=== PATIENT | female | born 1960 | race Caucasian/White ===

== ENCOUNTER → 2016-10-28 | Outpatient (CLI) | payer OTHER | END | disposition home or self-care (01) | LOC: CFH 10:07 | PROVIDERS: ATTEND Family Medicine | DX: Z12.31 Encounter for screening mammogram for malignant neoplasm of breast (principal) | CPT/HCPCS: G0202 ==

== ENCOUNTER → 2017-07-20 | Outpatient (CLI) | payer OTHER | END | disposition home or self-care (01) | LOC: RAD 16:05 | PROVIDERS: ATTEND Family Medicine | DX: N20.0 Calculus of kidney (principal); N32.89 Other specified disorders of bladder | CPT/HCPCS: 76770 ==

== ENCOUNTER 2020-10-22 19:12 | Inpatient (IN) | payer OTHER ==
[~2020-10-22] VITALS: Ht 152.4 cm; Wt 87.9 kg
--- NOTE | 2020-10-22 19:43 | NUR ---
Pt tested COVID positive yesterday. Feeling more SOB today. Pt satting 88-90% on RA, put on 2L nasal cannula satting 94%. Pt reports she has thrown up about 1x/day over the last few days. Reports she just feels weak, lethargic, short of breath. Only reported medical hx is HTN. Does not smoke.
[2020-10-22] MEDS ORDERED: DEXAMETHASONE 4 MG TABLET ONE (19:46)
--- NOTE | 2020-10-22 19:50 | NUR ---
XR at bedside
--- NOTE | 2020-10-22 19:58 | NUR ---
IV inserted, labs drawn, lab at bedside. Provided pt warm blanket.
[2020-10-22] MEDS ORDERED: SODIUM CHLORIDE FLUSH 10ML SYR IVF ONE (20:00)
[2020-10-22] MEDS ORDERED: DEXAMETHASONE 4 MG TABLET PO ONE (20:00)
[2020-10-22 20:17] LABS: BASOPHILS % (AUTO) 0 % (0-1); EOSINOPHILS % (AUTO) 0 % (1-7); LYMPHOCYTES % (AUTO) 16 % (22-44); MD NO; MEAN CORPUSCULAR HEMOGLOBIN 32.7 pg (27.0-34.8); MEAN CORPUSCULAR HGB CONC 34.2 g/dL (32.4-35.8); MEAN PLATELET VOLUME 8.8 fL (7.4-10.4); MONOCYTES % (AUTO) 9 % (2-9); NEUTROPHILS % (AUTO) 75 % (42-75); PLATELET COUNT 190 x10^3/uL (130-400); RED BLOOD COUNT 4.69 x10^6/uL (3.82-5.3); RED CELL DISTRIBUTION WIDTH 12.6 % (9.6-15.2)
[2020-10-22 20:24] LABS: ALANINE AMINOTRANSFERASE 39 U/L (12-78); ALBUMIN 3.5 g/dL (3.4-5.0); ANION GAP 6 mmol/L (5-15); CALCIUM 8.3 mg/dL (8.5-10.1); CHLORIDE 104 mmol/L (98-107)
[2020-10-22 20:26] LABS: ALKALINE PHOSPHATASE 42 U/L (45-117); BILIRUBIN,TOTAL 0.5 mg/dL (0.2-1.0); TOTAL PROTEIN 7.4 g/dL (6.4-8.2)
[2020-10-22] MEDS ORDERED: CEFTRIAXONE PMX 1GM/50ML 50 ML IV ONE (20:30)
--- NOTE | 2020-10-22 20:32 | NUR ---
Provider at bedside.
--- NOTE | 2020-10-22 21:03 | NUR ---
Updated pt's son Sharath on the phone per pt permission.
[2020-10-22] MEDS ORDERED: CEFTRIAXONE PMX 1GM/50ML 50 ML ONE (21:05)
--- NOTE | 2020-10-22 21:10 | NUR ---
Blood cultures have been drawn. Rocephin now infusing per eMAR.
--- NOTE | 2020-10-22 21:13 | NUR ---
Report called to GABRIEL Salomon.
--- NOTE | 2020-10-22 21:25 | NUR ---
Pt being transported to room 372.
[2020-10-22 21:39] VITALS: BP 105/71
[2020-10-22 21:50] VITALS: BP 150/71
[2020-10-22] MEDS ORDERED: AMLO-150 PO (22:29)
[2020-10-22] MEDS ORDERED: ALBU18HF INH (22:29)
[2020-10-22] MEDS ORDERED: PROMETHAZINE 25 MG/ML, 1ML IM PRN (22:30)
[2020-10-22] MEDS ORDERED: ONDANSETRON 2MG/ML, 2ML IVPush PRN (22:30)
[2020-10-22] MEDS ORDERED: hydrALAzine 20 MG/ML, 1ML IVPush PRN (22:30)
[2020-10-22] MEDS: MELATONIN 5 MG TABLET PO SCH (22:30)
[2020-10-22] MEDS ORDERED: ONDANSETRON ODT 4 MG PO PRN (22:30)
[2020-10-22] MEDS ORDERED: DOCUSATE 100 MG CAPSULE PO PRN (22:30)
[2020-10-22] MEDS ORDERED: BISACODYL 10 MG SUPP PR PRN (22:30)
[2020-10-22] MEDS ORDERED: POLYETHYLENE GLYCOL 17 GM PACKET PO PRN (22:30)
[2020-10-22 22:50] LABS: MICROSCOPIC INDICATED
[2020-10-22] MEDS ORDERED: ALBUTEROL HFA 90 MCG/SPRAY INH PRN (23:00)
[2020-10-22] MEDS: ENOXAPARIN 40 MG/0.4 ML SQ SCH (23:03)
[2020-10-22] MEDS: AZITHROMYCIN 500 MG in SODIUM CHLORIDE 0.9% 250 ML IV SCH (23:03)
[2020-10-22] MEDS: ACETAMINOPHEN 325 MG TABLET PO PRN (23:04)
[2020-10-22] MEDS: ASCORBIC ACID 500 MG TABLET PO SCH (23:08)
[2020-10-23 01:21] VITALS: BP 102/61
[2020-10-23 05:55] LABS: BASOPHILS % (AUTO) 0 % (0-1); EOSINOPHILS % (AUTO) 0 % (1-7); LYMPHOCYTES % (AUTO) 21 % (22-44); MEAN CORPUSCULAR HEMOGLOBIN 32.9 pg (27.0-34.8); MEAN CORPUSCULAR HGB CONC 34.2 g/dL (32.4-35.8); MEAN PLATELET VOLUME 8.6 fL (7.4-10.4); MONOCYTES % (AUTO) 7 % (2-9); NEUTROPHILS % (AUTO) 73 % (42-75); PLATELET COUNT 198 x10^3/uL (130-400); RED BLOOD COUNT 4.59 x10^6/uL (3.82-5.3)
[2020-10-23 05:56] LABS: MD NO
[2020-10-23 06:02] LABS: ALBUMIN 3.2 g/dL (3.4-5.0); ANION GAP 8 mmol/L (5-15); CHLORIDE 105 mmol/L (98-107)
[2020-10-23 06:11] LABS: ALANINE AMINOTRANSFERASE 42 U/L (12-78); ALKALINE PHOSPHATASE 41 U/L (45-117); BILIRUBIN,TOTAL 0.6 mg/dL (0.2-1.0); CHOL/HDL RATIO 2.3; CHOLESTEROL, TOTAL 130 mg/dL (140-239); CREATININE 1.05 mg/dL (0.55-1.02); HDL CHOL % 43 % (28-40); HDL CHOLESTEROL (DIRECT) 56 mg/dL (40-60); LDL CHOLESTEROL,CALCULATED 59 mg/dL (54-169); LDL/HDL RATIO 1.1 (0.5-3.0); TOTAL PROTEIN 7.1 g/dL (6.4-8.2); TRIGLYCERIDES 77 mg/dL (50-200); VLDL CHOLESTEROL 15 mg/dL (0-25)
[2020-10-23 08:01] VITALS: BP 103/64
[2020-10-23] MEDS ORDERED: AMLODIPINE 5 MG TABLET PO SCH (09:00)
[2020-10-23 09:08] LABS: D-DIMER 0.65 ug/mlFEU (0.00-0.52)
[2020-10-23] MEDS: DEXAMETHASONE 4 MG/ML, 1ML IVPush SCH (09:31)
[2020-10-23] MEDS: ASCORBIC ACID 500 MG TABLET PO SCH ×2 (09:32→17:03)
[2020-10-23] MEDS: ZINC SULFATE 220 MG CAPSULE PO SCH (09:32)
[2020-10-23] MEDS: CHOLECALCIFEROL 5,000u TAB PO SCH (09:32)
[2020-10-23] MEDS ORDERED: REMDESIVIR 200 MG in SODIUM CHLORIDE 0.9% 250 ML IVPB ONE (10:30)
[2020-10-23] MEDS: ENOXAPARIN 40 MG/0.4 ML SQ SCH ×2 (12:01→22:44)
[2020-10-23] MEDS: OXYcodone IR 5MG TABLET PO PRN ×3 (12:12→21:22)
[2020-10-23 16:39] VITALS: BP 110/75
[2020-10-23 19:17] VITALS: BP 101/66
[2020-10-23] MEDS: CEFTRIAXONE PMX 2GM/50ML 50 ML IVPB SCH (20:10)
[2020-10-23] MEDS: MELATONIN 5 MG TABLET PO SCH (21:22)
[2020-10-23] MEDS: AZITHROMYCIN 500 MG in SODIUM CHLORIDE 0.9% 250 ML IV SCH (22:44)
[2020-10-24] MEDS: OXYcodone IR 5MG TABLET PO PRN ×5 (00:59→21:02)
[2020-10-24 01:04] VITALS: BP 113/64
[2020-10-24 05:41] LABS: CHLORIDE 107 mmol/L (98-107)
[2020-10-24 05:59] LABS: ALANINE AMINOTRANSFERASE 43 U/L (12-78); ALBUMIN 2.9 g/dL (3.4-5.0); ALKALINE PHOSPHATASE 34 U/L (45-117); ANION GAP 4 mmol/L (5-15); BILIRUBIN,TOTAL 0.2 mg/dL (0.2-1.0); CALCIUM 8.3 mg/dL (8.5-10.1); CREATININE 0.86 mg/dL (0.55-1.02); TOTAL PROTEIN 6.2 g/dL (6.4-8.2)
[2020-10-24 06:39] VITALS: BP 101/68
[2020-10-24] MEDS: AMLODIPINE 5 MG TABLET PO SCH (07:36)
[2020-10-24] MEDS: DEXAMETHASONE 4 MG/ML, 1ML IVPush SCH (07:36)
[2020-10-24] MEDS: ZINC SULFATE 220 MG CAPSULE PO SCH (07:36)
[2020-10-24] MEDS: ASCORBIC ACID 500 MG TABLET PO SCH ×2 (07:36→15:41)
[2020-10-24] MEDS: CHOLECALCIFEROL 5,000u TAB PO SCH (07:36)
[2020-10-24] MEDS: REMDESIVIR 100 MG in SODIUM CHLORIDE 0.9% 250 ML IVPB SCH (11:07)
[2020-10-24] MEDS: ENOXAPARIN 40 MG/0.4 ML SQ SCH ×2 (11:07→22:44)
[2020-10-24 12:11] VITALS: BP 97/62
[2020-10-24] MEDS: CEFTRIAXONE PMX 2GM/50ML 50 ML IVPB SCH (18:40)
[2020-10-24 21:02] VITALS: BP 97/63
[2020-10-24] MEDS: AZITHROMYCIN 500 MG in SODIUM CHLORIDE 0.9% 250 ML IV SCH (22:44)
[2020-10-24] MEDS: MELATONIN 5 MG TABLET PO SCH (22:44)
[2020-10-25] MEDS: OXYcodone IR 5MG TABLET PO PRN ×2 (01:17→19:16)
[2020-10-25 01:18] VITALS: BP 101/63
[2020-10-25] MEDS: OMEPRAZOLE 20 MG CAPSULE.DR PO SCH (06:33)
[2020-10-25 06:48] VITALS: BP 106/67
[2020-10-25 06:48] LABS: BASOPHILS % (AUTO) 0 % (0-1); EOSINOPHILS % (AUTO) 0 % (1-7); LYMPHOCYTES % (AUTO) 17 % (22-44); MEAN CORPUSCULAR HEMOGLOBIN 32.5 pg (27.0-34.8); MEAN PLATELET VOLUME 8.6 fL (7.4-10.4); MONOCYTES % (AUTO) 13 % (2-9); NEUTROPHILS % (AUTO) 70 % (42-75); PLATELET COUNT 223 x10^3/uL (130-400); RED BLOOD COUNT 4.08 x10^6/uL (3.82-5.3); RED CELL DISTRIBUTION WIDTH 12.6 % (9.6-15.2)
[2020-10-25 06:50] LABS: MD NO
[2020-10-25 06:59] LABS: ALANINE AMINOTRANSFERASE 43 U/L (12-78); ALBUMIN 2.7 g/dL (3.4-5.0); ANION GAP 4 mmol/L (5-15); CHLORIDE 106 mmol/L (98-107); CREATININE 0.65 mg/dL (0.55-1.02)
[2020-10-25 07:03] LABS: ALKALINE PHOSPHATASE 34 U/L (45-117); BILIRUBIN,TOTAL 0.2 mg/dL (0.2-1.0); TOTAL PROTEIN 5.8 g/dL (6.4-8.2)
[2020-10-25] MEDS: ZINC SULFATE 220 MG CAPSULE PO SCH (08:11)
[2020-10-25] MEDS: ASCORBIC ACID 500 MG TABLET PO SCH ×2 (08:11→17:10)
[2020-10-25] MEDS: DEXAMETHASONE 4 MG/ML, 1ML IVPush SCH (08:11)
[2020-10-25] MEDS: THIAMINE 100MG TABLET PO SCH (08:11)
[2020-10-25] MEDS: AMLODIPINE 5 MG TABLET PO SCH (08:11)
[2020-10-25] MEDS: CHOLECALCIFEROL 5,000u TAB PO SCH (08:12)
[2020-10-25] MEDS ORDERED: FUROSEMIDE 20 MG/2 ML IV ONE (09:00)
[2020-10-25] MEDS: REMDESIVIR 100 MG in SODIUM CHLORIDE 0.9% 250 ML IVPB SCH (11:00)
[2020-10-25] MEDS: ENOXAPARIN 40 MG/0.4 ML SQ SCH ×2 (11:01→22:30)
[2020-10-25 13:10] VITALS: BP 104/69
[2020-10-25] MEDS: ACETAMINOPHEN 325 MG TABLET PO PRN (17:09)
[2020-10-25] MEDS: CEFTRIAXONE PMX 2GM/50ML 50 ML IVPB SCH (18:43)
[2020-10-25 20:18] VITALS: BP 102/65
[2020-10-25] MEDS: MELATONIN 5 MG TABLET PO SCH (21:23)
[2020-10-25] MEDS: AZITHROMYCIN 500 MG in SODIUM CHLORIDE 0.9% 250 ML IV SCH (22:34)
[2020-10-26] MEDS: OXYcodone IR 5MG TABLET PO PRN (00:34)
[2020-10-26 00:46] VITALS: BP 106/70
[2020-10-26] MEDS: OMEPRAZOLE 20 MG CAPSULE.DR PO SCH (05:24)
[2020-10-26 05:39] LABS: HCT (SEDRATE) 39.2 % (34.6-47.8)
[2020-10-26 05:45] LABS: BASOPHILS % (AUTO) 0 % (0-1); EOSINOPHILS % (AUTO) 0 % (1-7); LYMPHOCYTES % (AUTO) 19 % (22-44); MEAN CORPUSCULAR HEMOGLOBIN 32.7 pg (27.0-34.8); MEAN CORPUSCULAR HGB CONC 34.6 g/dL (32.4-35.8); MEAN PLATELET VOLUME 9.2 fL (7.4-10.4); MONOCYTES % (AUTO) 13 % (2-9); NEUTROPHILS % (AUTO) 68 % (42-75); PLATELET COUNT 235 x10^3/uL (130-400); RED BLOOD COUNT 4.21 x10^6/uL (3.82-5.3); RED CELL DISTRIBUTION WIDTH 12.6 % (9.6-15.2)
[2020-10-26 05:47] LABS: MD NO
[2020-10-26 05:52] LABS: ALBUMIN 2.7 g/dL (3.4-5.0); ANION GAP 5 mmol/L (5-15); CALCIUM 8.2 mg/dL (8.5-10.1); CHLORIDE 107 mmol/L (98-107)
[2020-10-26 05:56] LABS: D-DIMER 0.95 ug/mlFEU (0.00-0.52)
[2020-10-26 06:02] LABS: ALANINE AMINOTRANSFERASE 37 U/L (12-78); ALKALINE PHOSPHATASE 34 U/L (45-117); BILIRUBIN,TOTAL 0.3 mg/dL (0.2-1.0); CREATININE 0.65 mg/dL (0.55-1.02); TOTAL PROTEIN 5.8 g/dL (6.4-8.2)
[2020-10-26 08:19] VITALS: BP 117/80
[2020-10-26] MEDS: ZINC SULFATE 220 MG CAPSULE PO SCH (09:18)
[2020-10-26] MEDS: ASCORBIC ACID 500 MG TABLET PO SCH ×2 (09:18→18:19)
[2020-10-26] MEDS: THIAMINE 100MG TABLET PO SCH (09:18)
[2020-10-26] MEDS: AMLODIPINE 5 MG TABLET PO SCH (09:18)
[2020-10-26] MEDS: CHOLECALCIFEROL 5,000u TAB PO SCH (09:18)
[2020-10-26] MEDS: DEXAMETHASONE 4 MG/ML, 1ML IVPush SCH (09:19)
[2020-10-26] MEDS ORDERED: OMNIPAQUE 350 MG/ML, 75ML BOTTLE ONE (11:11)
[2020-10-26 12:47] VITALS: BP 126/78
[2020-10-26] MEDS: ENOXAPARIN 40 MG/0.4 ML SQ SCH (13:06)
[2020-10-26] MEDS: REMDESIVIR 100 MG in SODIUM CHLORIDE 0.9% 250 ML IVPB SCH (13:06)
[2020-10-26] MEDS: CEFTRIAXONE PMX 2GM/50ML 50 ML IVPB SCH (18:19)
[2020-10-26 20:23] VITALS: BP 97/62
[2020-10-26] MEDS: MELATONIN 5 MG TABLET PO SCH (22:14)
[2020-10-26] MEDS: AZITHROMYCIN 500 MG in SODIUM CHLORIDE 0.9% 250 ML IV SCH (22:14)
[2020-10-27] MEDS: ENOXAPARIN 40 MG/0.4 ML SQ SCH ×2 (00:16→13:36)
[2020-10-27 02:22] VITALS: BP 90/52
[2020-10-27 05:54] LABS: ALANINE AMINOTRANSFERASE 32 U/L (12-78); ALBUMIN 2.6 g/dL (3.4-5.0); ANION GAP 4 mmol/L (5-15); CALCIUM 7.9 mg/dL (8.5-10.1); CHLORIDE 110 mmol/L (98-107); CREATININE 0.58 mg/dL (0.55-1.02)
[2020-10-27 05:56] LABS: ALKALINE PHOSPHATASE 36 U/L (45-117); BILIRUBIN,TOTAL 0.3 mg/dL (0.2-1.0); TOTAL PROTEIN 5.7 g/dL (6.4-8.2)
[2020-10-27] MEDS: OMEPRAZOLE 20 MG CAPSULE.DR PO SCH (06:00)
[2020-10-27 07:21] VITALS: BP 103/72
[2020-10-27] MEDS: ZINC SULFATE 220 MG CAPSULE PO SCH (08:58)
[2020-10-27] MEDS: ASCORBIC ACID 500 MG TABLET PO SCH ×2 (08:58→17:33)
[2020-10-27] MEDS: AMLODIPINE 5 MG TABLET PO SCH (08:58)
[2020-10-27] MEDS: CHOLECALCIFEROL 5,000u TAB PO SCH (08:58)
[2020-10-27] MEDS: THIAMINE 100MG TABLET PO SCH (08:58)
[2020-10-27] MEDS: DEXAMETHASONE 4 MG/ML, 1ML IVPush SCH (08:58)
[2020-10-27 12:31] VITALS: BP 104/67
[2020-10-27] MEDS: ACETAMINOPHEN 325 MG TABLET PO PRN (13:35)
[2020-10-27] MEDS: REMDESIVIR 100 MG in SODIUM CHLORIDE 0.9% 250 ML IVPB SCH (13:36)
[2020-10-27] MEDS: CEFTRIAXONE PMX 2GM/50ML 50 ML IVPB SCH (17:33)
[2020-10-27 19:26] VITALS: BP 101/64
[2020-10-27] MEDS: OXYcodone IR 5MG TABLET PO PRN ×2 (19:26→23:38)
[2020-10-27] MEDS: MELATONIN 5 MG TABLET PO SCH (20:52)
[2020-10-27] MEDS: AZITHROMYCIN 500 MG in SODIUM CHLORIDE 0.9% 250 ML IV SCH (22:32)
[2020-10-28] MEDS: ENOXAPARIN 40 MG/0.4 ML SQ SCH (01:00)
[2020-10-28 01:02] VITALS: BP 101/66
[2020-10-28 05:46] LABS: BASOPHILS % (AUTO) 0 % (0-1); EOSINOPHILS % (AUTO) 0 % (1-7); LYMPHOCYTES % (AUTO) 17 % (22-44); MEAN CORPUSCULAR HEMOGLOBIN 32.9 pg (27.0-34.8); MEAN CORPUSCULAR HGB CONC 34.9 g/dL (32.4-35.8); MEAN PLATELET VOLUME 9.2 fL (7.4-10.4); MONOCYTES % (AUTO) 9 % (2-9); NEUTROPHILS % (AUTO) 74 % (42-75); PLATELET COUNT 307 x10^3/uL (130-400); RED BLOOD COUNT 4.12 x10^6/uL (3.82-5.3); RED CELL DISTRIBUTION WIDTH 12.8 % (9.6-15.2)
[2020-10-28 05:48] LABS: D-DIMER 0.81 ug/mlFEU (0.00-0.52)
[2020-10-28 05:54] LABS: CHLORIDE 109 mmol/L (98-107)
[2020-10-28 05:56] LABS: MD NO
[2020-10-28 06:00] LABS: ALANINE AMINOTRANSFERASE 39 U/L (12-78); ALBUMIN 2.7 g/dL (3.4-5.0); ALKALINE PHOSPHATASE 39 U/L (45-117); ANION GAP 5 mmol/L (5-15); BILIRUBIN,TOTAL 0.3 mg/dL (0.2-1.0); C-REACTIVE PROTEIN, QUANT 0.67 mg/dL (0.02-0.49); CALCIUM 8.3 mg/dL (8.5-10.1); CREATININE 0.67 mg/dL (0.55-1.02); TOTAL PROTEIN 5.8 g/dL (6.4-8.2)
[2020-10-28] MEDS: OMEPRAZOLE 20 MG CAPSULE.DR PO SCH (06:14)
[2020-10-28 07:05] VITALS: BP 103/69
[2020-10-28] MEDS ORDERED: OMEP-110 PO ×3 (09:05→09:10)
[2020-10-28] MEDS ORDERED: THIA100T67 PO ×3 (09:05→09:10)
[2020-10-28] MEDS ORDERED: AMOX1TAB64 PO ×2 (09:05)
[2020-10-28] MEDS ORDERED: ASCO500T9 PO ×3 (09:05→09:10)
[2020-10-28] MEDS ORDERED: CHOL500045 PO ×3 (09:05→09:10)
[2020-10-28] MEDS ORDERED: ZINC220C8 PO ×3 (09:05→09:10)
[2020-10-28] MEDS: ZINC SULFATE 220 MG CAPSULE PO SCH (09:58)
[2020-10-28] MEDS: AMLODIPINE 5 MG TABLET PO SCH (09:58)
[2020-10-28] MEDS: DEXAMETHASONE 4 MG/ML, 1ML IVPush SCH (09:58)
[2020-10-28] MEDS: ASCORBIC ACID 500 MG TABLET PO SCH (09:59)
[2020-10-28] MEDS: CHOLECALCIFEROL 5,000u TAB PO SCH (09:59)
[2020-10-28] MEDS: THIAMINE 100MG TABLET PO SCH (09:59)
== END 2020-10-28 11:50 | disposition home or self-care (01) | DRG 177 ==
LOC: ED 21:11 → EDIP 21:25 → 3N 21:31
PROVIDERS: ADMIT Internal Medicine; ATTEND Hospitalist
PROC: XW033E5 Introduction of Remdesivir Anti-infective into Peripheral Vein, Percutaneous Approach, New Technology Group 5 (ICD-10-PCS; principal; 2020-10-23)
DX: U07.1 COVID-19 (principal); J12.82 Pneumonia due to coronavirus disease 2019; J96.01 Acute respiratory failure with hypoxia; I10 Essential (primary) hypertension; Z78.9 Other specified health status; R79.89 Other specified abnormal findings of blood chemistry; Z91.040 Latex allergy status
CPT/HCPCS: 36415; 71045; 71275; 80053; 80061; 81001; 82728; 82962; 83036; 83605; 83615; 83735; 83880; 84100; 84145; 84443; 85025; 85379; 85384; 85651; 86140; 87040; 87086; 93005; 93306; 93970; 99285; G0378; J0456; J0696; J1100; J1650; Q9967; J1940; J7050